=== PATIENT | male | born 1985 | race Two or more races ===

== ENCOUNTER 2019-05-23 20:07 | Emergency (ER) | payer OTHER ==
[~2019-05-23] VITALS: Ht 167.6 cm; Wt 49.9 kg
--- NOTE | 2019-05-23 20:30 | NUR ---
RESPITORY AT BEDSIDE, ADJUSTED VENT. PATIENT IS NO RESPIRATORY DISTRESS.
[2019-05-23] MEDS ORDERED: IOHEXOL 300MG/ML 100 ML INFUS..BTL ONE (21:31)
[2019-05-23] MEDS ORDERED: SWABABLE VALVE TRANSFER SET EA MC ONE (21:31)
[2019-05-23] MEDS ORDERED: IV NORMAL SALINE 250 ML IV ONE (21:31)
[2019-05-23 21:32] LABS: BASOPHILS % (AUTO) 0.5 % (0.0-2.0); EOSINOPHILS # (AUTO) 0.2 K/uL (0.0-0.7); EOSINOPHILS % (AUTO) 2.5 % (0.0-7.0); HEMATOCRIT 42.9 % (36.7-47.1); HEMOGLOBIN 14.3 g/dL (12.5-16.3); LYMPHOCYTES % (AUTO) 28.4 % (20.5-51.5); MEAN CORPUSCULAR HEMOGLOBIN 31.8 uug (23.8-33.4); MEAN CORPUSCULAR HGB CONC 33 g/dL (32.5-36.3); MEAN CORPUSCULAR VOLUME 95.5 fL (73.0-96.2); MONOCYTES # (AUTO) 0.5 K/uL (2.0-10.0); MONOCYTES % (AUTO) 7.2 % (0.0-11.0); NEUTROPHILS # (AUTO) 4.4 K/uL (1.8-8.9); NEUTROPHILS % (AUTO) 61.4 % (38.5-71.5); PLATELET COUNT (AUTO) 251 K/uL (152-348); RED BLOOD CELL COUNT(AUTO) 4.49 MIL/uL (4.06-5.63); WHITE BLOOD COUNT (AUTO) 7.2 K/uL (3.6-10.2)
[2019-05-23 21:40] LABS: CREATININE 0.8 mg/dL (0.6-1.3); POTASSIUM 3.9 mmol/L (3.5-5.1)
--- NOTE | 2019-05-23 22:16 | NUR ---
patient taken down to CT with tech and respiratory therapist.
[2019-05-23] MEDS ORDERED: IV NORMAL SALINE 1000 ML BAG IV ONE (23:15)
[2019-05-23 23:16] LABS: *BILIRUBIN,URIN NEGATIVE (NEGATIVE); *BLOOD, URINE 2+ (NEGATIVE); *CLARITY,URINE CLOUDY (CLEAR); *COLOR,URINE YELLOW (YELLOW); *KETONES,URINE 1+ (NEGATIVE); *UROBILINOGEN,URINE 0.2 E.U./dl (NORMAL); LEUKOCYTE ESTERASE ,URINE 2+ (NEGATIVE); NITRITE, URINE POSITIVE (NEGATIVE); UGLUCOSE NEGATIVE (NEGATIVE)
[2019-05-23 23:43] LABS: WBC,URINE 20-50 /HPF (0-3)
[2019-05-23 23:44] LABS: BACTERIA,URINE MODERATE /HPF (NONE SEEN); SQUAMOUS EPITHELIAL CELL,UR FEW /HPF (NONE SEEN)
[2019-05-23] MEDS ORDERED: SULFAMETH/TRIMETH 800/160 MG TABLET PO ONE (23:45)
[2019-05-24] MEDS ORDERED: SULFAMETH/TRIMETH 800/160 MG TABLET ONE (01:00)
--- NOTE | 2019-05-24 01:01 | NUR ---
spoke to Reginald ([phone]) from [employer] to arrange transport for patient. Reservation # [id number] [facility] with estimated time arrival to be within 1-2 ours.
--- NOTE | 2019-05-24 02:28 | NUR ---
called [employer] for an update for ETA for transportation. Spoke to Dean, and he stated approximate arrival should be at 0250.
--- NOTE | 2019-05-24 03:01 | NUR ---
Patient discharged to home in stable conditon. Written and verbal after care instructions given. Patient verbalizes understanding of instructions. Patient taken home with arranged transporation by [employer] ([facility]). patient in stable condition, patient went home with portable vent that he arrived with to the department. ER physician aware of patients respiratory status and okayed the transportaion with knowldge patient is in stable condition and mother at bedside who provides care for the patient on a daily babsis. mother consents that she is familiar with the vent and able to function the system properly. patient VSS. Patient mother went with [employer]. Respiratory therapists at bedside for assistance when needed prior to discharge. Patient denied any pain/ respiratory discomfort prior to discharge.
[2019-05-24 03:35] VITALS: BP 107/56
== END 2019-05-24 03:05 | disposition home or self-care (01) ==
LOC: ER 20:11
DX: N39.0 Urinary tract infection, site not specified (principal); T83.031A Leakage of indwelling urethral catheter, initial encounter; Z88.1 Allergy status to other antibiotic agents
CPT/HCPCS: 36415; 51702; 72193; 80048; 81000; 81001; 85025; 87086; 99284; Q9967; A4663; J7030; J7050

== ENCOUNTER 2024-08-04 15:59 | Emergency (ER) | payer OTHER ==
[~2024-08-04] VITALS: Ht 167.6 cm; Wt 59.0 kg
[2024-08-04] MEDS: IV NORMAL SALINE 1000 ML BAG IV ONE (16:29)
[2024-08-04 16:57] LABS: BASOPHILS % (AUTO) 0.5 % (0.0-2.0); EOSINOPHILS % (AUTO) 5.6 % (0.0-7.0); HEMATOCRIT 32.9 % (36.7-47.1); LYMPHOCYTES % (AUTO) 20.7 % (20.5-51.5); MEAN CORPUSCULAR HEMOGLOBIN 30.6 uug (23.8-33.4); MEAN CORPUSCULAR HGB CONC 34 g/dL (32.5-36.3); MEAN CORPUSCULAR VOLUME 91.2 fL (73.0-96.2); MONOCYTES % (AUTO) 6.9 % (0.0-11.0); NEUTROPHILS % (AUTO) 66.3 % (38.5-71.5); PLATELET COUNT (AUTO) 247 K/uL (152-348); RED BLOOD CELL COUNT(AUTO) 3.61 MIL/uL (4.06-5.63); RED CELL DISTRIBUTION WIDTH 17.9 % (12.1-16.2); WHITE BLOOD COUNT (AUTO) 7.6 K/uL (3.6-10.2)
[2024-08-04 16:58] LABS: EOSINOPHILS # (AUTO) 0.4 K/uL (0.0-0.7); LYMPHOCYTES # (AUTO) 1.6 K/uL (0.8-4.8); MONOCYTES # (AUTO) 0.5 K/uL (0.1-1.30)
[2024-08-04 16:59] LABS: DIFFERENTIAL COMMENT 1
[2024-08-04 17:05] LABS: CALCIUM 8.5 mg/dL (8.5-10.1); CARBON DIOXIDE 15 mmol/L (21-32); CHLORIDE 113 mmol/L (98-107); CREATININE 0.6 mg/dL (0.6-1.3); GLUCOSE 101 mg/dL (74-106); POTASSIUM 3.6 mmol/L (3.5-5.1); SODIUM SERUM 143 mmol/L (136-145); UREA NITROGEN, BLOOD 10 mg/dL (7-18)
[2024-08-04 17:18] LABS: BILIRUBIN,DIRECT 0.2 mg/dL (0.0-0.2); BILIRUBIN,TOTAL 0.9 mg/dL (0.2-1.0)
[2024-08-04 17:19] LABS: ALANINE AMINOTRANSFERASE 32 U/L (16-63); ALBUMIN 2.8 g/dL (3.4-5.0); ALKALINE PHOSPHATASE 108 U/L (50-136); ASPARTATE AMINOTRANSFERASE 13 U/L (15-37); TOTAL PROTEIN, SERUM 6.3 g/dL (6.4-8.2)
[2024-08-04 17:32] LABS: *BILIRUBIN,URIN NEGATIVE (NEGATIVE); *BLOOD, URINE 2+ (NEGATIVE); *CLARITY,URINE SLIGHTLY CLOUDY (CLEAR); *COLOR,URINE YELLOW (YELLOW); *KETONES,URINE NEGATIVE (NEGATIVE); *PROTEIN,URINE 2+ (NEGATIVE); *UROBILINOGEN,URINE 0.2 E.U./dl (NORMAL); LEUKOCYTE ESTERASE ,URINE 3+ (NEGATIVE); NITRITE, URINE POSITIVE (NEGATIVE); PH,URINE 8.5 (5.0-8.0); UGLUCOSE NEGATIVE (NEGATIVE)
[2024-08-04 17:33] LABS: BACTERIA,URINE FEW /HPF (NONE SEEN)
[2024-08-04] MEDS: MAGNESIUM HYDROXIDE 30 ML LIQUID UDC PO ONE (19:05)
[2024-08-04] MEDS ORDERED: MAGNESIUM HYDROXIDE 30 ML LIQUID UDC ONE (19:06)
[2024-08-04 20:10] VITALS: BP 102/65; O2SAT 100
== END 2024-08-04 20:11 | disposition home or self-care (01) ==
LOC: ER 16:00
DX: I95.9 Hypotension, unspecified (principal); K59.00 Constipation, unspecified; R10.32 Left lower quadrant pain; R14.0 Abdominal distension (gaseous); R50.9 Fever, unspecified; R94.31 Abnormal electrocardiogram [ECG] [EKG]; G82.50 Quadriplegia, unspecified; Z88.0 Allergy status to penicillin; Z88.1 Allergy status to other antibiotic agents; Z93.0 Tracheostomy status; Z99.11 Dependence on respirator [ventilator] status
CPT/HCPCS: 36415; 71045; 74018; 83605; 83735; 84484; 85025; 85730; 87040; 94002; A4606; A4663; J7040